=== PATIENT | male | born 1965 | race African-American/Black ===

== ENCOUNTER 2018-06-13 17:55 | Inpatient (IN) ==
[2018-06-13] MEDS ORDERED: Acetaminophen 325 MG Tablet PO ONE (18:19)
[2018-06-13] MEDS ORDERED: Piperacil/Tazo 4.5 GM Premix 4.5 GM/100 ML BAG IV.SIG STA (18:19)
[2018-06-13] MEDS ORDERED: Vancomycin Inj 1,000 MG in Sodium Chlor 0.9% Inj 250 ML IV.SIG STA (18:19)
[2018-06-13] MEDS ORDERED: Sod Chloride 0.9% Inj 1,000 ML IV.SIG SCH (18:30)
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
--- NOTE | 2018-06-13 18:57 | XR ---
EXAM DATE: 06/13/2018 6:55 PM EST AGE/SEX: 53 years / Male INDICATIONS: Shortness of breath. CLINICAL DATA: This is the patient's initial encounter. Patient reports that signs and symptoms have been present for 3 days and indicates a pain score of 0/10. MEDICAL/SURGICAL HISTORY: None. Pacemaker. COMPARISON: No prior exams available for comparison. FINDINGS: A single AP view of the chest demonstrates the lungs to be symmetrically aerated without evidence of mass, infiltrate or effusion. No evidence of pneumothorax. The cardiomediastinal contours are unrema rkable. Osseous structures are intact. Cardiac pacer with [address] CONCLUSION: The lungs are clear. Electronically signed by: Girma Hall MD 06/13/2018 6:55 PM EST
[2018-06-13 19:03] LABS: Baso % (Auto) 0.2 % (0.0-2.0); Eos % (Auto) 0.1 % (0.0-4.0); Hematocrit 38.2 % (39.0-51.0); Hemoglobin 13.4 gm/dL (13.0-17.0); Lymph % (Auto) 7.7 % (9.0-44.0); Mean Corpuscular Hemoglobin 31.3 pg (27.0-34.0); Mean Corpuscular Volume 89.5 fL (80.0-100.0); Mean Platelet Volume 8.3 fL (7.0-11.0); Mono # (Auto) 1.1 th/mm3 (0.0-0.9); Neut # (Auto) 11.2 th/mm3 (1.8-7.7); Platelet Count 135 th/mm3 (150-450); Red Blood Count 4.27 mil/mm3 (4.50-5.90); Red Cell Distribution Width 14.8 % (11.6-17.2); White Blood Count 13.4 th/mm3 (4.0-11.0)
--- NOTE | 2018-06-13 19:06 | US ---
EXAM DATE: 06/13/2018 6:56 PM EST AGE/SEX: 53 years / Male INDICATIONS: Right leg swelling. CLINICAL DATA: This is the patient's initial encounter. Patient reports that signs and symptoms have been present for 2 days and indicates a pain score of 7/10. MEDICAL/SURGICAL HISTORY: . Montes. None. COMPARISON: No prior exams available for comparison. TECHNIQUE: Venous ultrasound of both lower extremities was performed from the inguinal ligament to t he proximal calf. Real-time, color Doppler and spectral tracing, compression and augmentation techni ques were used. FINDINGS: Normal compression of the deep venous system from the inguinal region to the proximal calf . No echogenic clot is seen. Normal response of the venous system to augmentation and respiration. CONCLUSION: No evidence of right lower extremity DVT. Electronically signed by: Milton Rodriguez MD 06/13/2018 7:05 PM EST
[2018-06-13 19:14] LABS: Activated Partial Thrombo Time 30.1 sec (23.4-31.7); INR 1.1 Ratio; Prothrombin Time 11.3 sec (9.8-11.6)
[2018-06-13 19:27] LABS: Albumin 3.3 g/dL (3.4-5.0); Anion Gap 11 meq/L (5-15); Aspartate Aminotransferase 17 U/L (15-37); Blood Urea Nitrogen 14 mg/dL (7-18); Calcium 8.7 mg/dL (8.5-10.1); Carbon Dioxide 25.4 meq/L (21.0-32.0); Chloride 101 meq/L (98-107); Glomerular Filtration Rate 69 mL/min (>89); Glucose,Random 102 mg/dL (74-106); Magnesium 1.9 mg/dL (1.5-2.5); Potassium 3.8 meq/L (3.5-5.1); Sodium 137 meq/L (136-145)
[2018-06-13 19:33] LABS: Alanine Aminotransferase 16 U/L (12-78); Alkaline Phosphatase 64 U/L (45-117); Creatine Kinase 180 U/L (39-308); Total Protein 7.6 g/dL (6.4-8.2)
[2018-06-13] MEDS ORDERED: Bisacodyl 10 MG Supp RECTAL PRN (19:52)
--- NOTE | 2018-06-13 19:54 | P.HPIM ---
History of Present Illness Primary Care Physician: UNKNOWN History of Present Illness: This is a 53-year-old male w/ PMH RLE Graft 2016 who presented to the ER w/ complaints of RLE pain and swelling x3 days. States he cut his leg at work 3 days ago and has been having progressive swelling and pain. Pain is constant, 8 /10, non-radiating, worse w/ ambulation/weight. Denies fever/chills. On arrival, BP 152/89, HR 102, O2 sat 98% on RA, Temp 102.0. WBC 13.4. Platelets 135. INR 1.1. Creatinine 1.31. Lactic Acid normal. Troponin negative. CXR with no acute findings. RLE Doppler negative for DVT. S/p Vanc/Zosyn in ER. - Diagnosis (1) Sepsis (2) Cellulitis (3) ZORA (acute kidney injury) Review of Systems PAST FAMILY HISTORY: Reviewed. No h/o DM or CAD All other systems reviewed negative except as stated in HPI [facility] - History History Provided By: Patient - Medical History Medical History: Medical History (Last Reviewed 06/13/18 @ 18:43 by MISAEL Gayle) Montes classified according to extent of body surface involved Patient denies medical problems - Surgical History Surgical History: Surgical History (Last Reviewed 06/13/18 @ 18:43 by MISAEL Gayle) No history of previous surgery - Tobacco History Tobacco Use In Past 30 Days: No Smoking Status: Never smoker - Alcohol History How Often Do You Have a Drink Containing Alcohol: Never - Substance Use History Substance History: No History of Abuse - Travel History Recent Travel in the [place] Within the Last 8 Weeks: No Recent Travel Out of the Country Within the Last 8 Weeks: No - Immunization History Tetanus Immunization: Unsure Medications and Allergies Allergies Allergy/AdvReac Type Severity Reaction Status Date / Time No Known Allergies Allergy Verified 06/13/18 18:22 Home Medications Medication Instructions Recorded Confirmed Type No Known Home Medications 06/13/18 06/13/18 History Exam Vital signs: Vital Signs 06/13/18 17:58 06/13/18 18:19 06/13/18 19:16 Temperature 102.0 F H 99.4 F Pulse Rate 102 H 85 Respiratory Rate 20 18 Blood Pressure 152/89 H 116/61 Pulse Oximetry 98 98 97 Intake & Output 06/13/18 06/13/1817/18 06:59 18:59 06:59 Weight 81.647 kg Narrative: PE: GENERAL: Very pleasant middle-aged black male in no acute distress. SKIN: Focused skin assessment warm and dry. HEENT: PERRLA, EOMI. No scleral icterus or conjunctival pallor. No lid lag or facial droop. CARDIOVASCULAR: Regular rate and rhythm. No obvious murmurs to auscultation. No chest tenderness to palpation. RESPIRATORY: No obvious rhonchi or wheezing. Clear to auscultation. Breath sounds equal bilaterally. GASTROINTESTINAL: Abdomen soft, non-tender, nondistended. BS normal. MUSCULOSKELETAL: Extremities without clubbing, cyanosis, or edema. No obvious deformities. +abrasion RLE w/ edema, no significant erythema. NEUROLOGICAL: Awake, alert and oriented x4. No focal neurologic deficits. Moving both upper and lower extremities spontaneously. PSYCHIATRIC: Appropriate mood and affect. Insight and judgment normal. Results - Labs CBC & Chem 7: 06/13/18 18:35 06/13/18 18:35 Labs: Short CBC 06/13/18 Range/Units 18:35 WBC 13.4 H (4.0-11.0) th/mm3 Hgb 13.4 (13.0-17.0) gm/dL Hct 38.2 L (39.0-51.0) % Plt Count 135 L (150-450) th/mm3 BMP 06/13/18 18:35 Sodium 137 Potassium 3.8 Chloride 101 Carbon Dioxide 25.4 BUN 14 Creatinine 1.31 H Calcium 8.7 Cardiac Enzymes 06/13/18 Range/Units 18:35 Total Creatine Kinase 180 (39-308) U/L CK-MB (CK-2) Less than 1.0 (0.5-3.6) ng/mL Troponin I Less than 0.02 L (0.02-0.05) ng/mL Liver Function 06/13/18 Range/Units 18:35 Total Bilirubin 0.4 (0.2-1.0) mg/dL AST 17 (15-37) U/L ALT 16 (12-78) U/L Alkaline Phosphatase 64 (45-117) U/L Albumin 3.3 L (3.4-5.0) g/dL - Imaging Impressions Chest X-Ray 11/16/18 18:19 CONCLUSION: The lungs are clear. Venous Doppler Study 06/13/18 18:19 CONCLUSION: No evidence of right lower extremity DVT. Caprini VTE Risk Assessment Caprini VTE Risk Assessment: No/Low Risk (score <= 1) Caprini Risk Assessment Model: Point Value = 1 Point Value = 2 Point Value = 3 Point Value = 5 Age 41-60 Minor surgery BMI > 25 kg/m2 Swollen legs Varicose veins or History of unexplained or recurrent spontaneous Oral contraceptives or hormone replacement Sepsis (< 1 month) Serious lung disease, including pneumonia (< 1 month) Abnormal pulmonary function Acute myocardial infarction Congestive heart failure (< 1 month) History of inflammatory bowel disease Medical patient at bed rest Age 61-74 Arthroscopic surgery Major open surgery (> 45 min) Laparoscopic surgery (> 45 min) Malignancy Confined to bed (> 72 hours) Immobilizing plaster cast Central venous access Age >= 75 History of VTE Family history of VTE Factor V Leiden Prothrombin [id number] Lupus anticoagulant Anticardiolipin antibodies Elevated serum homocysteine Heparin-induced thrombocytopenia Other congenital or acquired thrombophilia Stroke (< 1 month) Elective arthroplasty Hip, pelvis, or leg fracture Acute spinal cord injury (< 1 month) Prophylaxis Regimen: Total Risk Factor Score Risk Level Prophylaxis Regimen 0-1 Low Early ambulation 2 Moderate Order ONE of the following: *Sequential Compression Device (SCD) *Heparin 5000 units SQ BID 3-4 Higher Order ONE of the following medications: *Heparin 5000 units SQ TID *Enoxaparin/Lovenox 40 mg SQ daily (WT < 150 kg, CrCl > 30 mL/min) *Enoxaparin/Lovenox 30 mg SQ daily (WT < 150 kg, CrCl > 10-29 mL/min) *Enoxaparin/Lovenox 30 mg SQ BID (WT < 150 kg, CrCl > 30 mL/min) AND/OR *Sequential Compression Device (SCD) 5 or more Highest Order ONE of the following medications: *Heparin 5000 units SQ TID (Preferred with Epidurals) *Enoxaparin/Lovenox 40 mg SQ daily (WT < 150 kg, CrCl > 30 mL/min) *Enoxaparin/Lovenox 30 mg SQ daily (WT < 150 kg, CrCl > 10-29 mL/min) *Enoxaparin/Lovenox 30 mg SQ BID (WT < 150 kg, CrCl > 30 mL/min) AND *Sequential Compression Device (SCD) Assessment and Plan - Assessment (1) Sepsis Code(s): A41.9 - Sepsis, unspecified organism Status: Acute (2) Cellulitis Code(s): L03.90 - Cellulitis, unspecified Status: Acute (3) ZORA (acute kidney injury) Code(s): N17.9 - Acute kidney failure, unspecified Status: Acute - Plan A/P: 1. Sepsis: Temp 102, HR 102, WBC 13, Source-RLE Cellulitis, s/p Blood Cultures , Vanc/Zosyn, continue w/ IV Abx, follow up cultures. 2. Cellulitis: RLE, s/p injury while at work 3 days ago w/ progressive edema, Doppler RLE negative for DVT, continue w/ IV Abx as above, follow up cultures. 3. ZORA: Creatinine 1.31, no previous labs for comparison, presumably new, IVF for hydration, monitor I/O, repeat labs in am. 4. DVT Prophylaxis: Heparin sq 5. Social work for d/c planning as needed 6. Case discussed w/ ER physician at length, labs/records/imaging reviewed by me. (1) Sepsis Qualifiers: Sepsis type: sepsis due to unspecified organism Qualified Code(s): A41.9 - Sepsis, unspecified organism (2) Cellulitis Qualifiers: Site of cellulitis: extremity Site of cellulitis of extremity: lower extremity Laterality: right Qualified Code(s): L03.115 - Cellulitis of right lower limb
[2018-06-13] MEDS: Senna/Docusate Sodium 8.6/50 MG Tablet PO SCH (21:41)
[2018-06-13] MEDS: Sod Chloride 0.9% Inj 1,000 ML IV.CONT SCH (21:41)
[2018-06-13] MEDS ORDERED: Vancomycin Consult Pharmacy OTHER SCH (22:00)
[2018-06-13] MEDS ORDERED: Vancomycin Inj 500 MG in Sodium Chlor 0.9% Inj 100 ML IV.SIG ONE (23:00)
[2018-06-13] MEDS: Acetaminophen 325 MG Tablet PO PRN (23:21)
[2018-06-14] MEDS: Acetaminophen 325 MG Tablet PO PRN ×2 (05:16→15:38)
[2018-06-14 07:59] LABS: Baso % (Auto) 0.3 % (0.0-2.0); Eos % (Auto) 0.2 % (0.0-4.0); Hematocrit 38.5 % (39.0-51.0); Hemoglobin 12.9 gm/dL (13.0-17.0); Lymph # (Auto) 0.9 th/mm3 (1.0-4.8); Lymph % (Auto) 8.4 % (9.0-44.0); Mean Corpuscular HGB Conc 33.5 % (32.0-36.0); Mean Corpuscular Hemoglobin 30.5 pg (27.0-34.0); Mean Corpuscular Volume 91.1 fL (80.0-100.0); Mean Platelet Volume 8.9 fL (7.0-11.0); Mono # (Auto) 1.1 th/mm3 (0.0-0.9); Mono % (Auto) 9.4 % (0.0-8.0); Neut # (Auto) 9.2 th/mm3 (1.8-7.7); Neut % (Auto) 81.7 % (16.0-70.0); Platelet Count 136 th/mm3 (150-450); Red Blood Count 4.23 mil/mm3 (4.50-5.90); Red Cell Distribution Width 14.5 % (11.6-17.2); White Blood Count 11.2 th/mm3 (4.0-11.0)
[2018-06-14 08:26] LABS: Albumin 2.7 g/dL (3.4-5.0); Anion Gap 10 meq/L (5-15); Aspartate Aminotransferase 15 U/L (15-37); Blood Urea Nitrogen 13 mg/dL (7-18); Calcium 8.1 mg/dL (8.5-10.1); Carbon Dioxide 24.8 meq/L (21.0-32.0); Chloride 103 meq/L (98-107); Glomerular Filtration Rate 68 mL/min (>89); Glucose,Random 90 mg/dL (74-106); Potassium 3.7 meq/L (3.5-5.1); Sodium 138 meq/L (136-145)
[2018-06-14 08:27] LABS: Alanine Aminotransferase 15 U/L (12-78)
[2018-06-14 08:29] LABS: Alkaline Phosphatase 57 U/L (45-117); Total Protein 6.8 g/dL (6.4-8.2)
[2018-06-14] MEDS: Heparin - SQ 10,000 UNITS/ML Vial SQ SCH ×2 (08:33→21:09)
[2018-06-14] MEDS: Senna/Docusate Sodium 8.6/50 MG Tablet PO SCH ×2 (08:34→21:07)
[2018-06-14 09:56] LABS: Bilirubin,Urine Negative (Negative); Clarity,Urine Hazy (Clear); Color,Urine Yellow (Yellw/Straw); Glucose,Urine (UA) Negative (Negative); Leukocyte Esterase,Urine Negative (Negative); Mucus,Urine Few /lpf (Occasional); Nitrite,Urine Negative (Negative); Specific Gravity,Urine 1.019 (1.002-1.035); Squamous Epithelial Cell,Urine <1 /hpf (0-5)
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
[2018-06-14] MEDS: Sod Chloride 0.9% Inj 1,000 ML IV.CONT SCH ×2 (12:37→17:54)
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
[2018-06-14] MEDS: Vancomycin Inj 1,500 MG in Sodium Chlor 0.9% Inj 500 ML IV.SIG SCH (16:42)
[2018-06-15] MEDS: Sod Chloride 0.9% Inj 1,000 ML IV.CONT SCH ×3 (00:11→13:22)
[2018-06-15] MEDS: Acetaminophen 325 MG Tablet PO PRN ×2 (03:55→16:30)
[2018-06-15 05:32] LABS: Baso % (Auto) 0.3 % (0.0-2.0); Eos # (Auto) 0.2 th/mm3 (0.0-0.4); Eos % (Auto) 1.2 % (0.0-4.0); Hematocrit 33.8 % (39.0-51.0); Hemoglobin 11.6 gm/dL (13.0-17.0); Lymph # (Auto) 0.8 th/mm3 (1.0-4.8); Lymph % (Auto) 6.6 % (9.0-44.0); Mean Corpuscular HGB Conc 34.2 % (32.0-36.0); Mean Corpuscular Hemoglobin 30.6 pg (27.0-34.0); Mean Corpuscular Volume 89.3 fL (80.0-100.0); Mono # (Auto) 1.1 th/mm3 (0.0-0.9); Mono % (Auto) 8.9 % (0.0-8.0); Neut # (Auto) 10.4 th/mm3 (1.8-7.7); Platelet Count 133 th/mm3 (150-450); Red Blood Count 3.79 mil/mm3 (4.50-5.90); Red Cell Distribution Width 14.8 % (11.6-17.2); White Blood Count 12.5 th/mm3 (4.0-11.0)
[2018-06-15 05:55] LABS: Calcium 7.5 mg/dL (8.5-10.1); Carbon Dioxide 25.3 meq/L (21.0-32.0); Potassium 3.3 meq/L (3.5-5.1)
[2018-06-15] MEDS: Senna/Docusate Sodium 8.6/50 MG Tablet PO SCH ×2 (08:04→20:58)
[2018-06-15] MEDS: Heparin - SQ 10,000 UNITS/ML Vial SQ SCH ×2 (08:05→20:53)
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
[2018-06-15] MEDS: Clindamycin 900 mg/NS Premix 900 MG/50 ML PIGGYBACK IV.SIG SCH ×2 (11:23→18:04)
[2018-06-15] MEDS: levoFLOXacin 750 MG Tablet PO SCH (11:34)
[2018-06-15] MEDS: Vancomycin Inj 1,500 MG in Sodium Chlor 0.9% Inj 500 ML IV.SIG SCH (11:35)
[2018-06-15] MEDS ORDERED: Diphtheria/Tetanus/Pertussis Vaccine Inj 0.5 ML Syringe IM ONE (14:00)
--- NOTE | 2018-06-15 15:33 | P.DIET ---
Nutritional Evaluation Type of nutrition evaluation: initial Nutrition consult regarding: Diet Evaluation Nutrition screening: Weight Loss > 10 lbs Objective - Diagnosis sepsis, cellulitis - Objective Body Mass Index: 25.0 % IBW: 104 (IBW = 172lb) Body Weight Used for Calculations: Actual Energy Needs - Lower Range (kCal/kg): 22 Energy Needs - Upper Range (kCal/kg): 28 Lower Limit kCal/kg (kCals): 1,789 Upper Limit kCal/kg (kCals): 2,276 Lower Limit Protein Factor (Grams per Kg): 1.1 Upper Limit Protein Factor (Grams per Kg): 1.3 Lower Protein Needs (Protein): 89 Upper Protein Needs (Protein): 106 Dietitian Reviewed in Medical Record: Current diet, Curent medications, Intake & Output, Labs, Medical history Diet Order: regular Oral Diet Intake Amount: Good 75-90% Objective Comments: PMH: king, Hx of skin grafts Labs: K+ 3.3, GFR 71, random glucose 127, Ca+ 7.5 Assessment Assessment: Pt currently at nutritional risk r/t reported unplanned wt loss. Pt currently eating around 75-100% of most meals and tolerating diet well. RD will continue to assess pts nutritional needs for a PO supplement. Continue to monitor PO intake. Labs reviewed, dietitian following. Recommendations: 1. RD will continue to assess pts nutritional needs for a PO supplement 2. Continue to monitor PO intake 3. Dietitian following Dietitian to Monitor: Lab values, Intake & Output, PO Intake, Medical course
[2018-06-16] MEDS: Clindamycin 900 mg/NS Premix 900 MG/50 ML PIGGYBACK IV.SIG SCH ×3 (02:46→20:54)
[2018-06-16] MEDS: Sod Chloride 0.9% Inj 1,000 ML IV.CONT SCH ×2 (02:47→11:14)
[2018-06-16] MEDS ORDERED: Pharmacy Ordered Lab Info OTHER ONE (04:45)
[2018-06-16 05:22] LABS: Baso % (Auto) 0.3 % (0.0-2.0); Eos # (Auto) 0.1 th/mm3 (0.0-0.4); Hematocrit 33.3 % (39.0-51.0); Hemoglobin 11.4 gm/dL (13.0-17.0); Lymph # (Auto) 0.7 th/mm3 (1.0-4.8); Lymph % (Auto) 4.9 % (9.0-44.0); Mean Corpuscular HGB Conc 34.3 % (32.0-36.0); Mean Corpuscular Hemoglobin 30.5 pg (27.0-34.0); Mean Corpuscular Volume 88.8 fL (80.0-100.0); Mean Platelet Volume 9.1 fL (7.0-11.0); Mono # (Auto) 1.2 th/mm3 (0.0-0.9); Mono % (Auto) 8.2 % (0.0-8.0); Neut # (Auto) 12.7 th/mm3 (1.8-7.7); Neut % (Auto) 85.6 % (16.0-70.0); Platelet Count 159 th/mm3 (150-450); Red Blood Count 3.75 mil/mm3 (4.50-5.90); Red Cell Distribution Width 14.6 % (11.6-17.2); White Blood Count 14.8 th/mm3 (4.0-11.0)
[2018-06-16 05:41] LABS: Calcium 7.6 mg/dL (8.5-10.1); Carbon Dioxide 24.8 meq/L (21.0-32.0); Potassium 3.5 meq/L (3.5-5.1); Vancomycin,Trough 6.5 mcg/mL (5.0-10.0)
[2018-06-16] MEDS: Vancomycin Inj 1,500 MG in Sodium Chlor 0.9% Inj 500 ML IV.SIG SCH ×2 (06:26→17:35)
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
[2018-06-16] MEDS: Heparin - SQ 10,000 UNITS/ML Vial SQ SCH ×2 (08:55→20:54)
[2018-06-16] MEDS: levoFLOXacin 750 MG Tablet PO SCH (08:56)
[2018-06-16] MEDS: Senna/Docusate Sodium 8.6/50 MG Tablet PO SCH ×2 (08:56→20:55)
[2018-06-16] MEDS: Acetaminophen 325 MG Tablet PO PRN (12:30)
--- NOTE | 2018-06-16 15:34 | P.PN ---
Subjective Interval history: The patient was seen earlier today. He is ambulating in the room. Says he wants to go home. He was cleared by orthopedic doctor. However the patient still is still on IV antibiotics and is not cleared by infectious disease. Says he feels improved. No fever chills no nausea or vomiting. He is eating okay. Physical Exam Vital signs: Vital Signs 06/15/18 16:00 06/15/18 17:25 06/15/18 20:00 Temperature 102.7 F H 99.9 F H 98.4 F Pulse Rate 91 H 77 Respiratory Rate 16 17 Blood Pressure 127/61 118/63 Pulse Oximetry 96 98 06/16/18 00:00 06/16/18 04:00 06/16/18 08:00 Temperature 97 F L 101.8 F H 99.1 F Pulse Rate 72 82 72 Respiratory Rate 17 17 17 Blood Pressure 110/62 99/59 L 123/59 L Pulse Oximetry 99 94 L 98 06/16/18 12:00 Temperature 100.1 F H Pulse Rate 75 Respiratory Rate 17 Blood Pressure 100/65 Pulse Oximetry 96 Intake & Output 06/15/18 06/16/18 06/16/18 18:59 06:59 18:59 Intake Total 3515 / 3515 1045 / 1045 750 / 750 Output Total 800 / 800 800 / 800 Balance 2715 / 2715 245 / 245 750 / 750 Weight 81.3 kg Intake: IV 715 / 715 565 / 565 750 / 750 NS Inj 1,000 ML @ 100 mls/hr IV 700 / 700 .CONT .Q10H [facility] Rx#:[id number] Maxipime Inj 1,000 MG In NS Inj 100 / 100 100 ML @ 200 mls/hr IV.SIG Q12H [facility] Rx#:[id number] Cleocin 900 mg/NS Premix 900 mg 100 / 100 50 / 50 50 / 50 In 50 ml @ 100 mls/hr IV.SIG Q8H [facility] Rx#:[id number] Vancomycin Inj 1,500 MG In NS 515 / 515 515 / 515 Inj 500 ML @ 250 mls/hr IV.SIG Q18H [facility] Rx#:[id number] Oral 2800 / 2800 480 / 480 Output: Urine 800 / 800 800 / 800 Other: # Voids 2 Date of Last Bowel Movement 11/19/18 Narrative: GENERAL: The patient is a very pleasant AA male, who appears in NAD. SKIN: Warm and dry. HEENT: AT/NC. Pupils equal and round. MMM. CHEST: Pacemaker left chest. HEART: RRR no m/r/g. LUNGS: CTAB without wheezes or crackles. ABDOMEN: +BS, soft, NT, ND. EXTREMITIES: R LE diffusely swollen, warmth, and erythematous distal to the knee with superficial abrasions over barrett. The skin is very tight. No drainage. 2+ pedal pulses bilaterally. Patient able to flex and extend RLE. NEURO: Awake and alert. PSYCH: Appropriate mood and affect. Results - Labs CBC & Chem 7: 06/16/18 04:35 06/16/18 04:35 Laboratory Results - last 24 hr 06/16/18 06/16/18 04:35 04:35 WBC 14.8 H RBC 3.75 L Hgb 11.4 L Hct 33.3 L MCV 88.8 MCH 30.5 MCHC 34.3 RDW 14.6 Plt Count 159 MPV 9.1 Neut % (Auto) 85.6 H Lymph % (Auto) 4.9 L [place] % (Auto) 8.2 H Eos % (Auto) 1.0 Baso % (Auto) 0.3 Neut # (Auto) 12.7 H Lymph # (Auto) 0.7 L [place] # (Auto) 1.2 H Eos # (Auto) 0.1 Baso # (Auto) 0.0 WBC Differential . Differential Comment Auto diff final Sodium 138 Potassium 3.5 Chloride 104 Carbon Dioxide 24.8 Anion Gap 9 BUN 8 Creatinine 1.20 Estimated GFR 77 L Random Glucose 116 H Calcium 7.6 L Vancomycin Trough 6.5 Microbiology 06/13/18 18:45 Blood - Peripheral Aerobic Blood Culture - Preliminary No growth in 3 days 06/13/18 18:45 Blood - Peripheral Anaerobic Blood Culture - Preliminary No growth in 3 days 06/13/18 18:35 Blood - Peripheral Aerobic Blood Culture - Preliminary No growth in 3 days 06/13/18 18:35 Blood - Peripheral Anaerobic Blood Culture - Preliminary No growth in 3 days Assessment and Plan - Assessment (1) Sepsis Code(s): A41.9 - Sepsis, unspecified organism Status: Acute (2) Cellulitis Code(s): L03.90 - Cellulitis, unspecified Status: Acute (3) ZORA (acute kidney injury) Code(s): N17.9 - Acute kidney failure, unspecified Status: Acute - Plan 53 year old male with history of pacemaker placement and history of extensive king requiring skin graft admitted on 06/13 for sepsis secondary to RLE cellulitis after sustaining an injury at work involving a steel beam. 1. Sepsis, resolving - Met criteria on admission based on fever, tachycardia, and leukocytosis with source cellulitis - Bolused and on broad-spectrum abx - Continue IV fluids - Blood cultures negative at two days 2. RLE cellulitis - CT showing diffuse subcutaneous swelling noted throughout the right lower leg and more severe laterally with no deep soft tissue abscess collection noted - White count continues to be mildly elevated - Ortho consulted to ensure no surgical intervention noted as patient doesn't want any delay in care and hopes to be out for Thanksgiving. Seen by orthopedic Dr. Lam. Patient can follow-up as outpatient. For surgical intervention at this time. - ID consulted; recommend continuing vancomycin and changing cefepime to Levaquin and adding clindamycin - Elevated RLE - Pain control - Tylenol PRN fever 3. Anemia - Hb slowly trending down since admission: 13.4 > 12.9 > 11.6 - Likely secondary to acute infection - No active bleeding - Monitor 4. 

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
[2018-06-17] MEDS: Clindamycin 900 mg/NS Premix 900 MG/50 ML PIGGYBACK IV.SIG SCH ×2 (03:32→11:11)
[2018-06-17] MEDS: Vancomycin Inj 1,500 MG in Sodium Chlor 0.9% Inj 500 ML IV.SIG SCH (05:29)
--- NOTE | 2018-06-17 06:44 | P.PNOP ---
Subjective Interval history: Madi has no new complaints. His right leg pain and swelling have improved. He is still on IV antibiotics. He is able to ambulate with no pain. Physical Exam Vital signs: Vital Signs 06/16/18 08:00 06/16/18 12:00 06/16/18 16:00 Temperature 99.1 F 100.1 F H 98.4 F Pulse Rate 72 75 69 Respiratory Rate 17 17 17 Blood Pressure 123/59 L 100/65 113/66 Pulse Oximetry 98 96 97 06/16/18 20:00 06/17/18 00:00 06/17/18 04:00 Temperature 98.6 F 100.1 F H 98.6 F Pulse Rate 73 82 72 Respiratory Rate 17 18 18 Blood Pressure 102/66 111/58 L 109/59 L Pulse Oximetry 99 98 97 Intake & Output 06/16/18 06/16/18 06/17/18 06:59 18:59 06:59 Intake Total 1045 / 1045 950 / 950 665 / 665 Output Total 800 / 800 1949 / 1950 Balance 245 / 245 -1000 / -1000 665 / 665 Weight 81.3 kg Intake: IV 565 / 565 950 / 950 665 / 665 NS Inj 1,000 ML @ 100 mls/hr IV 900 / 900 100 / 100 .CONT .Q10H [facility] Rx#:[id number] Cleocin 900 mg/NS Premix 900 mg 50 / 50 50 / 50 50 / 50 In 50 ml @ 100 mls/hr IV.SIG Q8H [facility] Rx#:[id number] Vancomycin Inj 1,500 MG In NS 515 / 515 515 / 515 Inj 500 ML @ 250 mls/hr IV.SIG Q12H [facility] Rx#:[id number] Oral 480 / 480 Output: Urine 800 / 800 1949 / 1950 Other: # Voids 4 Date of Last Bowel Movement 06/16/18 # Bowel Movements 1 Narrative: Patient is awake and alert. Examination of right leg reveals no significant pain with hip, knee, or ankle motion. He has mild swelling of the calf. Skin is intact except for a small superficial abrasion. There is no fluctuance. He has minimal tenderness along the calf and tibia. Results - Labs CBC & Chem 7: 06/16/18 04:35 06/16/18 04:35 Microbiology 06/13/18 18:45 Blood - Peripheral Aerobic Blood Culture - Preliminary No growth in 3 days 06/13/18 18:45 Blood - Peripheral Anaerobic Blood Culture - Preliminary No growth in 3 days 06/13/18 18:35 Blood - Peripheral Aerobic Blood Culture - Preliminary No growth in 3 days 06/13/18 18:35 Blood - Peripheral Anaerobic Blood Culture - Preliminary No growth in 3 days Assessment and Plan - Assessment and Plan Madi sustained a right calf laceration with subsequent cellulitis. CT scan does not show any evidence of abscess. Clinically there is no evidence of fluctuance or abscess at this time--patient symptoms are improving. Continue antibiotics per infectious disease. Continue activity as tolerated At this time I do not see a need for surgical intervention. No further orthopedic follow-up necessary at this time.
[2018-06-17 06:54] LABS: Baso # (Auto) 0.1 th/mm3 (0.0-0.2); Baso % (Auto) 0.4 % (0.0-2.0); Eos # (Auto) 0.3 th/mm3 (0.0-0.4); Hematocrit 31.3 % (39.0-51.0); Hemoglobin 10.8 gm/dL (13.0-17.0); Lymph % (Auto) 6.2 % (9.0-44.0); Mean Corpuscular HGB Conc 34.3 % (32.0-36.0); Mean Corpuscular Hemoglobin 30.8 pg (27.0-34.0); Mean Corpuscular Volume 89.7 fL (80.0-100.0); Mean Platelet Volume 9.2 fL (7.0-11.0); Mono # (Auto) 1.1 th/mm3 (0.0-0.9); Neut # (Auto) 13.9 th/mm3 (1.8-7.7); Neut % (Auto) 84.4 % (16.0-70.0); Platelet Count 188 th/mm3 (150-450); Red Blood Count 3.49 mil/mm3 (4.50-5.90); Red Cell Distribution Width 14.8 % (11.6-17.2); White Blood Count 16.4 th/mm3 (4.0-11.0)
[2018-06-17 07:21] LABS: Calcium 7.9 mg/dL (8.5-10.1); Carbon Dioxide 25.7 meq/L (21.0-32.0); Potassium 3.8 meq/L (3.5-5.1)
[2018-06-17] MEDS: Sod Chloride 0.9% Inj 1,000 ML IV.CONT SCH ×2 (08:32→13:38)
[2018-06-17] MEDS: Heparin - SQ 10,000 UNITS/ML Vial SQ SCH (08:37)
[2018-06-17] MEDS: Senna/Docusate Sodium 8.6/50 MG Tablet PO SCH ×2 (08:37→08:40)
[2018-06-17] MEDS: levoFLOXacin 750 MG Tablet PO SCH (08:37)
--- NOTE | 2018-06-17 13:38 | P.PN ---
Subjective Interval history: The patient is ambulating in the room says he wants to go home. However he is still with low-grade fevers, edema in his right leg and also with white blood cells going up. Clinically however he is improved. Pain in his leg is fairly controlled by medications. Temp of 100.1 overnight. Says is not eating because he does not like the food otherwise he has appetite. Says he wants to go home otherwise he will leave against medical advise. Physical Exam Vital signs: Vital Signs 06/16/18 16:00 06/16/18 20:00 06/17/18 00:00 Temperature 98.4 F 98.6 F 100.1 F H Pulse Rate 69 73 82 Respiratory Rate 17 17 18 Blood Pressure 113/66 102/66 111/58 L Pulse Oximetry 97 99 98 06/17/18 04:00 06/17/18 08:00 06/17/18 12:00 Temperature 98.6 F 99.3 F 97.8 F Pulse Rate 72 85 69 Respiratory Rate 18 22 20 Blood Pressure 109/59 L 109/69 111/66 Pulse Oximetry 97 92 L 98 Intake & Output 06/16/18 06/17/18 06/17/18 18:59 06:59 18:59 Intake Total 950 / 950 665 / 665 615 / 615 Output Total 1949 / 1950 900 / 900 Balance -1000 / -1000 -235 / -235 615 / 615 Weight 88.4 kg Intake: IV 950 / 950 665 / 665 615 / 615 NS Inj 1,000 ML @ 100 mls/hr IV 900 / 900 100 / 100 .CONT .Q10H [facility] Rx#:[id number] Cleocin 900 mg/NS Premix 900 mg 50 / 50 50 / 50 100 / 100 In 50 ml @ 100 mls/hr IV.SIG Q8H [facility] Rx#:[id number] Vancomycin Inj 1,500 MG In NS 515 / 515 515 / 515 Inj 500 ML @ 250 mls/hr IV.SIG Q12H [facility] Rx#:[id number] Output: Urine 1949 / 1950 900 / 900 Other: # Voids 4 Date of Last Bowel Movement 06/16/18 # Bowel Movements 1 1 Narrative: GENERAL: The patient is a very pleasant AA male, who appears in NAD. CHEST: Pacemaker left chest. HEART: RRR no m/r/g. LUNGS: CTAB without wheezes or crackles. ABDOMEN: +BS, soft, NT, ND. EXTREMITIES: R LE diffusely swollen, warmth, and erythematous distal to the knee with superficial abrasions over barrett. The skin is very tight. No drainage. 2+ pedal pulses bilaterally. Patient able to flex and extend RLE. NEURO: Awake and alert. Ambulating in the hallways. PSYCH: Appropriate mood and affect. Results - Labs CBC & Chem 7: 06/17/18 06:01 06/17/18 06:01 Laboratory Results - last 24 hr 06/17/18 06/17/18 06:01 06:01 WBC 16.4 H RBC 3.49 L Hgb 10.8 L Hct 31.3 L MCV 89.7 MCH 30.8 MCHC 34.3 RDW 14.8 Plt Count 188 MPV 9.2 Neut % (Auto) 84.4 H Lymph % (Auto) 6.2 L [place] % (Auto) 7.0 Eos % (Auto) 2.0 Baso % (Auto) 0.4 Neut # (Auto) 13.9 H Lymph # (Auto) 1.0 [place] # (Auto) 1.1 H Eos # (Auto) 0.3 Baso # (Auto) 0.1 WBC Differential . Differential Comment Auto diff final Sodium 140 Potassium 3.8 Chloride 106 Carbon Dioxide 25.7 Anion Gap 8 BUN 7 Creatinine 1.08 Estimated GFR 87 L Random Glucose 97 Calcium 7.9 L Microbiology 06/13/18 18:45 Blood - Peripheral Aerobic Blood Culture - Preliminary No growth in 4 days 06/13/18 18:45 Blood - Peripheral Anaerobic Blood Culture - Preliminary No growth in 4 days 06/13/18 18:35 Blood - Peripheral Aerobic Blood Culture - Preliminary No growth in 4 days 06/13/18 18:35 Blood - Peripheral Anaerobic Blood Culture - Preliminary No growth in 4 days Assessment and Plan - Assessment (1) Sepsis Code(s): A41.9 - Sepsis, unspecified organism Status: Acute (2) Cellulitis Code(s): L03.90 - Cellulitis, unspecified Status: Acute (3) ZORA (acute kidney injury) Code(s): N17.9 - Acute kidney failure, unspecified Status: Acute - Plan 53 year old male with history of pacemaker placement and history of extensive king requiring skin graft admitted on 06/13 for sepsis secondary to RLE cellulitis after sustaining an injury at work involving a steel beam. 1. Sepsis, resolving - Met criteria on admission based on fever, tachycardia, and leukocytosis with source cellulitis - Bolused and on broad-spectrum abx - Continue IV fluids - Blood cultures negative at two days 2. RLE cellulitis - CT showing diffuse subcutaneous swelling noted throughout the right lower leg and more severe laterally with no deep soft tissue abscess collection noted - White count continues to be mildly elevated - Ortho consulted to ensure no surgical intervention noted as patient doesn't want any delay in care and hopes to be out for Thanksgiving. Seen by orthopedic Dr. Lam. Patient can follow-up as outpatient. For surgical intervention at this time. - ID consulted; recommend continuing vancomycin and changing cefepime to Levaquin and adding clindamycin - Elevated RLE - Pain control - Tylenol PRN fever 3. Anemia - Hb slowly trending down since admission: 13.4 > 12.9 > 11.6 - Likely secondary to acute infection - No active bleeding - Monitor 4. 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 discussed with Dr. Gunderson infectious disease specialist patient will DC on clindamycin 300 mg 4 times daily and Levaquin 750 mg daily for total of 10 days. Patient to have HOMERO stockings and to follow-up with his primary care doctor as outpatient. Patient to go to the ER if condition worsen if fever occurs or pain worsen. (1) Sepsis Qualifiers: Sepsis type: sepsis due to unspecified organism Qualified Code(s): A41.9 - Sepsis, unspecified organism (2) Cellulitis Qualifiers: Site of cellulitis: extremity Site of cellulitis of extremity: lower extremity Laterality: right Qualified Code(s): L03.115 - Cellulitis of right lower limb
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
[2018-06-18] MEDS ORDERED: Pharmacy Ordered Lab Info OTHER ONE (04:45)
== END 2018-06-17 15:53 | disposition home or self-care (01) ==
LOC: NEPC 17:55 → NEDA 19:49 → N07 21:12
PROVIDERS: ADMIT Hospitalist; ATTEND Hospitalist
DX: R63.4 Abnormal weight loss; Z95.0 Presence of cardiac pacemaker; N17.9 Acute kidney failure, unspecified; D64.9 Anemia, unspecified; W26.9XXA Contact with unspecified sharp object(s), initial encounter; L03.115 Cellulitis of right lower limb; S81.811A Laceration without foreign body, right lower leg, initial encounter; A41.9 Sepsis, unspecified organism